=== PATIENT | female | born 1985 | race Caucasian/White ===

== ENCOUNTER 2017-10-19 15:25 | Emergency (ER) | payer BC ==
[2017-10-19 15:30] VITALS: TEMP 98.6
[2017-10-19] MEDS ORDERED: NS 1,000 ML IV ONE (15:38)
[2017-10-19 15:56] LABS: PLATELET COUNT 210 10^3/uL (150-400)
[2017-10-19 16:20] VITALS: RESP 16; O2SAT 96
--- NOTE | 2017-10-19 16:46 | EDPHY ---
H & P Stated Complaint: Vag bleed 11 weeks preg--so far used 1 pad Time Seen by Provider: 10/19/17 16:45 HPI/ROS: HPI: This is a 32-year-old female who presents with Chief Complaint: Vag bleed 11 weeks preg--so far used 1 pad Location: Vaginal Quality: Bleeding Duration: 1-2 hours prior to arrival Signs and Symptoms: no fever, no nausea, no vomiting, no hematemesis, no blood in stool, no abdominal bloating, no diarrhea, no back pain, no urinary symptoms , no vaginal discharge, no indigestion, no chest pain, no shortness of breath Timing: Acute Severity: Mild Context: Patient reports that her last menstrual period was sometime at the end of June; G1; has establish care at [facility] presents with sudden onset of scant amount of bright red blood while at lunch with her this afternoon. She denies any abdominal pain or pelvic cramping. She reports on Friday she had a scant amount of dark brown vaginal discharge. She called the on-call OBGYN who advised to continue to monitor and follow up on Friday. She reports that she has continued her normal activity. No recent sexual intercourse. Eating and drinking normally. Denies fever, urinary symptoms, abdominal pain. Modifying Factors: None Comment: ROS: see HPI Constitutional: No fever, no chills, no weight loss Eyes: No blurred vision Respiratory: No shortness of breath, no cough Cardiovascular: No chest pain, no palpitations Gastrointestinal: No nausea, no vomiting, no diarrhea, no hematemesis, no blood in stool Genitourinary: No dysuria, no blood in urine Extremities: No myalgias, no edema Neurologic: No weakness, no numbness Skin: No rashes, no petechiae Hematologic: No bruising, no bleeding MEDICAL/SURGICAL/SOCIAL HISTORY: Medical history: Generally healthy. Does not take any regular medications. Surgical history: Denies Social history: . Works at home. CONSTITUTIONAL: awake and alert, no obvious distress HEENT: Atraumatic and normocephalic, PERRL, EOMI. Tympanic membranes clear. Oropharynx clear, no exudate and moist pink mucosa. Airway patent. No lymphadenopathy. No meningismus. Cardiovascular: Normal S1/S2, regular rate, regular rhythm, without murmur rub or gallop. PULMONARY/CHEST: Symmetrical and nontender. Clear to auscultation bilaterally. Good air movement. No accessory muscle usage. ABDOMEN: Soft, nondistended, nontender, no rebound, no guarding, no peritoneal signs, no masses or organomegaly. No CVAT. PELVIC: Politely decline per patient as extremely emotional. EXTREMITIES: 2/2 pulses, strength 5/5, no deformities, no clubbing, no cyanosis or edema. NEUROLOGICAL: no focal neuro deficits. GCS 15. SKIN: Warm and dry, no erythema. no rash. Good capillary refill. Source: Patient, Family () Exam Limitations: No limitations - Personal History LMP (Females 10-55): Current Tetanus/Diphtheria Vaccine: No Current Tetanus Diphtheria and Acellular Pertussis (TDAP): No - Medical/Surgical History Hx Asthma: No Hx Chronic Respiratory Disease: No Hx Diabetes: No Hx Cardiac Disease: No Hx Renal Disease: No Hx Cirrhosis: No Hx Alcoholism: No Hx HIV/AIDS: No Hx Splenectomy or Spleen Trauma: No Other PMH: denies - Social History Smoking Status: Never smoked Constitutional: Initial Vital Signs Temperature (C) 37.0 C 10/19/17 15:27 Heart Rate 90 10/19/17 15:27 Respiratory Rate 18 10/19/17 15:27 Blood Pressure 135/90 H 10/19/17 15:27 O2 Sat (%) 99 10/19/17 15:27 O2 Delivery Mode Room Air Allergies/Adverse Reactions: No Known Allergies Allergy (Unverified 10/19/17 15:27) Home Medications: Medication Instructions Recorded NK [No Known Home Meds] 10/19/17 Medical Decision Making - Diagnostics Imaging Results: Imaging Impressions Obstetrics Ultrasound 10/19/17 15:39 Impression: Intrauterine demise at 8 weeks 6 days. Findings were discussed with Tatiana Morris PA-C at 16:32, on 10/19/2017. ED Course/Re-evaluation: Labs, urinalysis, pelvic ultrasound, IV fluids ordered Patient given 1 L normal saline Denies any abdominal pain/pelvic pain. Serum beta HCG 8893 Labs reviewed and grossly unremarkable including no signs of significant anemia. Blood type is A positive per verbal results from lab; Rhogam not indicated Discussed options of admission with D&C versus trying to passed products of conception naturally. Patient prefers to passed products of conception naturally. No signs of sepsis/hemorrhage Patient reports that she will call her OBGYN at [facility] tomorrow for close follow up This patient was seen under the supervision of my secondary supervising physician. I evaluated care for this patient independently. Discussed this patient with Dr. Watson who did not see the patient. Differential Diagnosis: Vaginal bleeding including but not limited to ectopic , menses, miscarriage, and dysfunctional uterine bleeding. - Data Points Laboratory Results: Laboratory Results 10/19/17 15:47 10/19/17 15:47 10/19/17 10/19/17 10/19/17 15:47 15:47 15:47 WBC 9.06 10^3/uL 10^3/uL (3.80-9.50) RBC 4.42 10^6/uL 10^6/uL (4.18-5.33) Hgb 13.7 g/dL g/dL (12.6-16.3) Hct 39.1 % % (38.0-47.0) MCV 88.5 fL fL (81.5-99.8) MCH 31.0 pg pg (27.9-34.1) MCHC 35.0 g/dL g/dL (32.4-36.7) RDW 12.0 % % (11.5-15.2) Plt Count 210 10^3/uL 10^3/uL (150-400) MPV 10.6 fL fL (8.7-11.7) Neut % (Auto) 57.4 % % (39.3-74.2) Lymph % (Auto) 33.0 % % (15.0-45.0) Dundy % (Auto) 6.2 % % (4.5-13.0) Eos % (Auto) 2.4 % % (0.6-7.6) Baso % (Auto) 0.7 % % (0.3-1.7) Nucleat RBC Rel Count 0.0 % % (0.0-0.2) Absolute Neuts (auto) 5.20 10^3/uL 10^3/uL (1.70-6.50) Absolute Lymphs (auto) 2.99 10^3/uL 10^3/uL (1.00-3.00) Absolute Monos (auto) 0.56 10^3/uL 10^3/uL (0.30-0.80) Absolute Eos (auto) 0.22 10^3/uL 10^3/uL (0.03-0.40) Absolute Basos (auto) 0.06 10^3/uL 10^3/uL (0.02-0.10) Absolute Nucleated RBC 0.00 10^3/uL 10^3/uL (0-0.01) Immature Gran % 0.3 % % (0.0-1.1) Immature Gran # 0.03 10^3/uL 10^3/uL (0.00-0.10) Sodium 139 mEq/L mEq/L (135-145) Potassium 3.7 mEq/L mEq/L (3.5-5.2) Chloride 103 mEq/L mEq/L (97-110) Carbon Dioxide 24 mEq/l mEq/l (22-31) Anion Gap 12 mEq/L mEq/L (8-16) BUN 7 mg/dL mg/dL (7-23) Creatinine 0.6 mg/dL mg/dL (0.6-1.0) Estimated GFR > 60 Glucose 92 mg/dL mg/dL (70-100) Calcium 9.0 mg/dL mg/dL (8.5-10.4) Beta HCG, Quant 8893.90 mIU/mL H mIU/mL (0.00-4.83) Patient ABO/Rh A POSITIVE Medications Given: Discontinued Medications Sodium Chloride (Ns) 1,000 mls @ 0 mls/hr IV ONCE ONE; Wide Open PRN Reason: Protocol Stop: 10/19/17 15:39 Last Admin: 10/19/17 16:18 Dose: 1,000 mls Departure - Departure Disposition: Home, Routine, Self-Care Clinical Impression: Intrauterine before 20 weeks of gestation, Threatened miscarriage Condition: Good Instructions: Miscarriage (ED), Pelvic Rest (ED) Additional Instructions: Follow-up with [facility] next week. Follow pelvic rest. Over the next few days, you will pass your products of conception. If you do not past your products of conception, you will have to have surgery to have them removed. If you developed fever, intractable abdominal pain, or any symptoms that concern you; return to the emergency room immediately for further care. Follow-Up: Please follow-up as noted above. Follow-up sooner if your condition worsens or if you develop any new problems. Call as soon as possible for an appointment. Be clear when you call for an appointment that this is an Emergency Department follow-up. Contact the Emergency Department if you have trouble arranging follow-up care. Our referrals are not based on your insurance network. When time allows, contact your insurance carrier to verify the referral physician is in your plan. If not, get a referral for an in-healthcare network pricing consultant. Referrals: PCP Not In,Dictionary [Medical Doctor] - As per Instructions
[2017-10-19 17:42] VITALS: BP 111/80; PULSE 89
== END 2017-10-19 17:41 | disposition home or self-care (01) ==
DX: O20.0 Threatened abortion (principal); O36.4XX0 Maternal care for intrauterine death, not applicable or unspecified; E86.9 Volume depletion, unspecified; Z3A.11 11 weeks gestation of pregnancy